=== PATIENT | male | born 1940 | race Caucasian/White ===

== ENCOUNTER 2019-02-21 08:30 | Observation (INO) ==
[2019-02-21] MEDS ORDERED: LACTATED RINGERS 1,000 ML IV ONE (09:18)
[2019-02-21 09:31] LABS: Basophils # 0.1 10*3/uL (0.0-0.2); Basophils % 1.1 % (0.0-0.8); Eosinophils # 0.1 10*3/uL (0.0-0.87); Eosinophils % 2.6 % (0.00-10.9); Hematocrit 44.2 VOL% (42.0-52.0); Hemoglobin 15.4 GM/DL (14.0-18.0); Immature Granulocytes % 0.6 %; Immature Granulocytes Absolute 0.03 #; Lymphocytes # 0.9 10*3/uL (1.4-4.0); Lymphocytes % 17.7 % (21.2-54.2); Mean Corpuscular HGB Conc 34.8 GM/DL (32-36); Mean Corpuscular Volume 92.3 FL (87-102); Mean Platelet Volume 9.5 FL (9.6-12.0); Monocytes % 10.2 % (1.7-12.7); Neutrophils % 67.8 % (38.7-73.9); Platelet Count 198 T/CUMM (130-400); Red Blood Count 4.79 MC/CUMM (3.8-5.5); Red Cell Distribution Width 11.9 % (9.3-17.3); White Blood Count 5.3 T/CUMM (4-12)
[2019-02-21 09:37] LABS: PT Patient Result 11.1 SECS (9.6-12.2)
[2019-02-21 09:53] LABS: Albumin 3.7 G/DL (3.4-5.0); Bilirubin,Total 0.5 MG/DL (0.2-1.0); Calcium 9.5 MG/DL (8.5-10.1); Osmolality,Calculated 282.1 MOS/KG (273-304); Total Protein 6.3 G/DL (6.4-8.3)
[2019-02-21] MEDS ORDERED: ONDANSETRON 4 MG/2 ML VIAL IV PRN (12:08)
[2019-02-21] MEDS ORDERED: ACETAMINOPHEN 325 MG TABLET PO PRN (12:08)
[2019-02-21 13:03] LABS: Thyroid Stimulating Hormone 1.19 uIU/ml (0.358-3.74)
[2019-02-21 13:11] LABS: Apearance,Urine CLEAR (Clear); Bilirubin,Urine Negative (Negative); Blood, Urine Negative (Negative); Glucose,Urine (UA) Negative (Negative); Hyaline Casts,Urine 3 /LPF (0-3); Ketones,Urine Negative (Negative); Mucus,Urine Occasional /LPF (Occasional); Nitrite,Urine Negative (Negative); Protein,Urine Negative; RBC,Urine 3 /HPF (0-4); Urine Color Yellow (Yellow); Urine Specific Gravity 1.049 (1.001-1.035); Urine Urobilinogen < 2.0 EU/DL (0.2-1.0)
[2019-02-21] MEDS ORDERED: IPRATROPIUM 500 MCG/2.5 ML NEB RESP TX SCH (13:45)
[2019-02-21] MEDS ORDERED: ALBUTEROL/IPRATROPIUM 3 ML NEB RESP TX PRN (13:45)
[2019-02-21] MEDS ORDERED: ALBUTEROL 2.5 MG/3 ML NEB RESP TX PRN (15:00)
[2019-02-21] MEDS: METOCLOPRAMIDE 10 MG TABLET PO SCH (16:12)
[2019-02-21] MEDS: GABAPENTIN 300 MG CAPSULE PO SCH ×2 (16:12→20:32)
[2019-02-21] MEDS: oxyCODONE/ACETAMINOPHEN 5-325 MG TABLET PO PRN (16:12)
[2019-02-21] MEDS: MONTELUKAST 10 MG TABLET PO SCH (20:32)
[2019-02-21] MEDS: ROSUVASTATIN 10 MG TABLET PO SCH (20:32)
[2019-02-21] MEDS: TAMSULOSIN 0.4 MG CAPSULE PO SCH (20:32)
[2019-02-21] MEDS: THEOPHYLLINE ER 300 MG TABLET PO SCH (20:32)
[2019-02-21] MEDS: ENOXAPARIN 40 MG/0.4 ML SYRINGE SUBCUT SCH (20:33)
[2019-02-22 04:54] LABS: Basophils # 0.1 10*3/uL (0.0-0.2); Basophils % 1.3 % (0.0-0.8); Eosinophils # 0.3 10*3/uL (0.0-0.87); Eosinophils % 4.7 % (0.00-10.9); Hematocrit 42.2 VOL% (42.0-52.0); Hemoglobin 14.2 GM/DL (14.0-18.0); Immature Granulocytes % 0.4 %; Immature Granulocytes Absolute 0.02 #; Lymphocytes # 1.6 10*3/uL (1.4-4.0); Lymphocytes % 30.2 % (21.2-54.2); Mean Corpuscular HGB Conc 33.6 GM/DL (32-36); Mean Corpuscular Volume 94.6 FL (87-102); Mean Platelet Volume 9.3 FL (9.6-12.0); Monocytes % 13.2 % (1.7-12.7); Neutrophils % 50.2 % (38.7-73.9); Platelet Count 165 T/CUMM (130-400); Red Blood Count 4.46 MC/CUMM (3.8-5.5); White Blood Count 5.3 T/CUMM (4-12)
[2019-02-22 05:38] LABS: Calcium 8.9 MG/DL (8.5-10.1); Osmolality,Calculated 285.8 MOS/KG (273-304); Risk Ratio 2.98; VLDL CHOLESTEROL 24.2 MG/DL
[2019-02-22] MEDS ORDERED: DILTIAZEM CD 120 MG CAPSULE PO SCH (09:00)
[2019-02-22] MEDS ORDERED: POTASSIUM CHLORIDE RIDER 10 MEQ in PREMIX 1 EACH IV PRN (09:12)
[2019-02-22] MEDS ORDERED: DIAZEPAM 5 MG TABLET PO ONE (09:12)
[2019-02-22] MEDS ORDERED: diphenhydrAMINE CAP 25 MG CAPSULE PO ONE (09:12)
[2019-02-22] MEDS ORDERED: MAGNESIUM SULF RIDER 2 GM in PREMIX 1 EACH IV PRN (09:12)
[2019-02-22] MEDS ORDERED: ceFAZolin 1,000 MG VIAL IRRIG ONE (09:44)
[2019-02-22] MEDS ORDERED: SODIUM CHLORIDE 0.9% 1,000 ML IV SCH ×2 (10:00→14:30)
[2019-02-22] MEDS: GABAPENTIN 300 MG CAPSULE PO SCH ×3 (10:43→20:28)
[2019-02-22] MEDS: MONTELUKAST 10 MG TABLET PO SCH ×2 (10:43→20:28)
[2019-02-22] MEDS: THEOPHYLLINE ER 300 MG TABLET PO SCH ×2 (10:43→20:27)
[2019-02-22] MEDS: METOCLOPRAMIDE 10 MG TABLET PO SCH ×2 (10:44→16:33)
[2019-02-22] MEDS: PANTOPRAZOLE 40 MG TABLET PO SCH (10:44)
[2019-02-22] MEDS: predniSONE 5 MG TABLET PO SCH (10:44)
[2019-02-22] MEDS: ASPIRIN EC 81 MG TABLET PO SCH (10:44)
[2019-02-22] MEDS: amLODIPine 2.5 MG TABLET PO SCH (12:16)
[2019-02-22] MEDS: ENOXAPARIN 40 MG/0.4 ML SYRINGE SUBCUT SCH (20:25)
[2019-02-22] MEDS: TAMSULOSIN 0.4 MG CAPSULE PO SCH (20:27)
[2019-02-22] MEDS: ROSUVASTATIN 10 MG TABLET PO SCH (20:28)
[2019-02-22] MEDS: oxyCODONE/ACETAMINOPHEN 5-325 MG TABLET PO PRN (20:29)
[2019-02-23 04:29] LABS: Basophils # 0.1 10*3/uL (0.0-0.2); Basophils % 1.7 % (0.0-0.8); Eosinophils # 0.3 10*3/uL (0.0-0.87); Eosinophils % 6.3 % (0.00-10.9); Hematocrit 40.5 VOL% (42.0-52.0); Immature Granulocytes % 0.6 %; Immature Granulocytes Absolute 0.03 #; Lymphocytes % 37.7 % (21.2-54.2); Mean Corpuscular HGB Conc 34.6 GM/DL (32-36); Mean Corpuscular Volume 92.5 FL (87-102); Mean Platelet Volume 9.3 FL (9.6-12.0); Neutrophils % 42.7 % (38.7-73.9); Platelet Count 169 T/CUMM (130-400); Red Blood Count 4.38 MC/CUMM (3.8-5.5); Red Cell Distribution Width 11.6 % (9.3-17.3); White Blood Count 5.3 T/CUMM (4-12)
[2019-02-23 05:00] LABS: Calcium 8.6 MG/DL (8.5-10.1)
[2019-02-23] MEDS: oxyCODONE/ACETAMINOPHEN 5-325 MG TABLET PO PRN (08:28)
[2019-02-23] MEDS: THEOPHYLLINE ER 300 MG TABLET PO SCH (09:16)
[2019-02-23] MEDS: MONTELUKAST 10 MG TABLET PO SCH (09:17)
[2019-02-23] MEDS: METOCLOPRAMIDE 10 MG TABLET PO SCH (09:17)
[2019-02-23] MEDS: predniSONE 5 MG TABLET PO SCH (09:17)
[2019-02-23] MEDS: ASPIRIN EC 81 MG TABLET PO SCH (09:17)
[2019-02-23] MEDS: PANTOPRAZOLE 40 MG TABLET PO SCH (09:17)
[2019-02-23] MEDS: amLODIPine 2.5 MG TABLET PO SCH (09:17)
[2019-02-23] MEDS: GABAPENTIN 300 MG CAPSULE PO SCH (09:17)
[2019-02-23 11:42] VITALS: BP 118/87
[2019-02-24] MEDS ORDERED: BISOPROLOL 5 MG TABLET PO SCH ×2 (09:00)
== END 2019-02-23 14:34 | disposition home or self-care (01) ==
LOC: EDUNIT# → EDBD → N.ED 08:30 → N.EDINP 08:30 → SUATTDRO 12:08 → N.EDINP 13:40 → N.TELEN 13:51
PROVIDERS: ADMIT Internal Medicine; ATTEND Internal Medicine

== ENCOUNTER 2020-04-28 11:57 | Observation (INO) ==
[2020-04-28 13:03] LABS: Basophils # 0.1 10*3/uL (0.0-0.2); Basophils % 1.2 % (0.0-0.8); Eosinophils # 0.1 10*3/uL (0.0-0.87); Eosinophils % 1.3 % (0.00-10.9); Hematocrit 41.6 VOL% (42.0-52.0); Hemoglobin 14.5 GM/DL (14.0-18.0); Immature Granulocytes % 0.7 %; Immature Granulocytes Absolute 0.04 #; Lymphocytes # 0.9 10*3/uL (1.4-4.0); Lymphocytes % 15.2 % (21.2-54.2); Mean Corpuscular HGB Conc 34.9 GM/DL (32-36); Mean Corpuscular Volume 88.3 FL (87-102); Mean Platelet Volume 9.8 FL (9.6-12.0); Monocytes % 8.6 % (1.7-12.7); Platelet Count 145 T/CUMM (130-400); Red Blood Count 4.71 MC/CUMM (3.8-5.5); Red Cell Distribution Width 12.1 % (9.3-17.3)
[2020-04-28 13:21] LABS: Albumin 3.5 G/DL (3.4-5.0); Bilirubin,Total 0.4 MG/DL (0.2-1.0); Calcium 8.7 MG/DL (8.5-10.1); Osmolality,Calculated 279.4 MOS/KG (273-304); Total Protein 6.2 G/DL (6.4-8.3)
[2020-04-28 13:42] LABS: Bilirubin,Urine Negative (Negative); Blood, Urine Negative (Negative); Glucose,Urine (UA) Negative (Negative); Hyaline Casts,Urine 19 /LPF (0-3); Ketones,Urine Negative (Negative); Mucus,Urine Occasional /LPF (Occasional); Nitrite,Urine Negative (Negative); Protein,Urine 30 MG/DL; RBC,Urine 1 /HPF (0-4); Squamous Epithelial Cell,Urine Occasional /HPF (0-10); Urine Appearance CLEAR (Clear); Urine Color Yellow (Yellow); Urine Specific Gravity 1.017 (1.001-1.035); Urine Urobilinogen < 2.0 EU/DL (0.2-1.0); WBC,Urine 3 /HPF (0-6)
[2020-04-28] MEDS ORDERED: ACETAMINOPHEN 325 MG TABLET PO PRN (15:01)
[2020-04-28] MEDS ORDERED: GLUCAGON 1 MG VIAL IM PRN (15:01)
[2020-04-28] MEDS ORDERED: ONDANSETRON 4 MG/2 ML VIAL IV PRN (15:01)
[2020-04-28] MEDS ORDERED: DEXTROSE 50% 25 GM/50 ML VIAL IV PRN (15:01)
[2020-04-28] MEDS ORDERED: SODIUM CHLORIDE 0.9% 1,000 ML IV SCH (17:00)
[2020-04-28] MEDS ORDERED: ENOXAPARIN 40 MG/0.4 ML SYRINGE SUBCUT SCH (21:00)
[2020-04-29 05:45] LABS: Basophils # 0.1 10*3/uL (0.0-0.2); Basophils % 1.5 % (0.0-0.8); Eosinophils # 0.3 10*3/uL (0.0-0.87); Eosinophils % 4.1 % (0.00-10.9); Hematocrit 42.4 VOL% (42.0-52.0); Hemoglobin 14.9 GM/DL (14.0-18.0); Immature Granulocytes % 0.6 %; Immature Granulocytes Absolute 0.04 #; Lymphocytes # 1.7 10*3/uL (1.4-4.0); Lymphocytes % 24.5 % (21.2-54.2); Mean Corpuscular HGB Conc 35.1 GM/DL (32-36); Mean Corpuscular Volume 88.1 FL (87-102); Mean Platelet Volume 9.9 FL (9.6-12.0); Monocytes % 11.1 % (1.7-12.7); Neutrophils % 58.2 % (38.7-73.9); Platelet Count 153 T/CUMM (130-400); Red Blood Count 4.81 MC/CUMM (3.8-5.5); White Blood Count 6.9 T/CUMM (4-12)
[2020-04-29 06:02] LABS: Calcium 8.7 MG/DL (8.5-10.1); Osmolality,Calculated 281.1 MOS/KG (273-304); Risk Ratio 3.15; Thyroid Stimulating Hormone 1.54 uIU/ml (0.358-3.74); VLDL CHOLESTEROL 25.4 MG/DL
[2020-04-29] MEDS ORDERED: oxyCODONE/ACETAMINOPHEN 5-325 MG TABLET PO PRN (07:41)
[2020-04-29] MEDS ORDERED: tiZANidine 4 MG TABLET PO PRN (07:41)
[2020-04-29] MEDS ORDERED: IPRATROPIUM 500 MCG/2.5 ML NEB RESP TX PRN (07:41)
[2020-04-29] MEDS ORDERED: predniSONE 5 MG TABLET PO SCH (09:00)
[2020-04-29] MEDS ORDERED: ASPIRIN EC 81 MG TABLET PO SCH (09:00)
[2020-04-29] MEDS ORDERED: MONTELUKAST 10 MG TABLET PO SCH (09:00)
[2020-04-29] MEDS ORDERED: PREGABALIN 100 MG CAPSULE PO SCH (09:00)
[2020-04-29] MEDS ORDERED: THEOPHYLLINE ER 300 MG TABLET PO SCH (09:00)
[2020-04-29] MEDS ORDERED: ROSUVASTATIN 10 MG TABLET PO SCH (09:00)
[2020-04-29] MEDS ORDERED: PANTOPRAZOLE 40 MG TABLET PO SCH ×2 (09:00)
[2020-04-29 11:23] VITALS: BP 169/98
[2020-04-29] MEDS ORDERED: rOPINIRole 0.25 MG TABLET PO SCH (21:00)
[2020-04-29] MEDS ORDERED: TAMSULOSIN 0.4 MG CAPSULE PO SCH (21:00)
[2020-04-29] MEDS ORDERED: AMITRIPTYLINE 25 MG TABLET PO SCH (21:00)
[2020-04-30] MEDS ORDERED: BISOPROLOL 5 MG TABLET PO SCH (09:00)
[2020-05-26] MEDS ORDERED: CYANOCOBALAMIN 1000 MCG/1 ML VIAL IM SCH (08:00)
== END 2020-04-29 14:40 | disposition home health service (06) ==
LOC: EDUNIT# → EDBD → N.ED 11:57 → N.EDINP 11:57 → N.TELEN 16:14
PROVIDERS: ADMIT Internal Medicine; ATTEND Internal Medicine